=== PATIENT | male | born 1960 | race Caucasian/White ===

== ENCOUNTER 2017-05-10 07:42 | Emergency (ER) | payer BC, OTHER ==
[2017-05-10 07:48] VITALS: BP 177/99
[2017-05-10] MEDS ORDERED: Ketorolac INJ* 60 MG/2 ML VIAL IM ONE (08:08)
--- NOTE | 2017-05-10 09:02 | RAD ---
HISTORY: Hand pain COMPARISONS: None VIEWS: 4, Frontal, lateral, and oblique views of the right hand FINDINGS: BONE DENSITY: Normal. BONES: There is no displaced fracture. There is remote posttraumatic deformity to the fifth metacarpal. JOINTS: There is mild osteoarthritic of the interphalangeal joints and first CMC joint. ALIGNMENT: There is no dislocation. SOFT TISSUES: Unremarkable. OTHER FINDINGS: None. IMPRESSION: NO ACUTE OSSEOUS INJURY. IF SYMPTOMS PERSIST, RECOMMEND REPEAT IMAGING.
--- NOTE | 2017-05-10 12:39 | ED ---
Adan Inman Angela, scribed for Rusty Ghotra MD on 05/10/17 at 0833 . Upper Extremity Pain - HPI Summary HPI Summary: This pt is a 57 y/o male presenting to [facility] c/o right hand pain since yesterday morning. 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 Pt rates her pain 7 out of 10 in severity. He states his pain is aggravated with movement and twisting of his right hand. Pt is currently on anti -hypertensive medications. NKDA. - History of Current Complaint Chief Complaint: EDExtremityUpper Stated Complaint: HAND INJURY Time Seen by Provider: 05/10/17 08:00 Hx Obtained From: Patient Mechanism Of Injury: Other - injury from conduit mechanic work Onset/Duration: Started Days Ago - 1 day Timing: Lasting Days - 1 day Pain Location: Hand - right hand Aggravating Factor(s): Movement, Twisting Alleviating Factor(s): Nothing Associated Signs & Symptoms: Negative: Weakness, Numbness/Tingling - Allergies/Home Medications Allergies/Adverse Reactions: Allergies Allergy/AdvReac Type Severity Reaction Status Date / Time No Known Allergies Allergy Verified 05/13/14 11:32 PMH/Surg Hx/FS Hx/Imm Hx Endocrine/Hematology History: Denies: Hx Diabetes Cardiovascular History: Reports: Hx Hypertension - ON MEDS Denies: Other Cardiovascular Problems/Disorders Respiratory History: Reports: Hx Sleep Apnea - NOT DIAGNOSED GI History: Reports: Hx Gastroesophageal Reflux Disease - ON DAILY MEDS Denies: Other GI Disorders Musculoskeletal History: Reports: Hx Bursitis - RIGHT ELBOW Sensory History: Reports: Hx Contacts or Glasses - READING GLASSES Denies: Hx Hearing Aid Opthamlomology History: Reports: Hx Contacts or Glasses - READING GLASSES Neurological History: Denies: Other Neuro Impairments/Disorders - Surgical History Surgery Procedure, Year, and Place: 2008 RIGHT CARPAL TUNNEL [facility] Hx Anesthesia Reactions: No Infectious Disease History: No Infectious Disease History: Denies: Traveled Outside the [place] in Last 30 Days - Family History Known Family History: Positive: Hypertension, Other - Mother: hyperglycemia and asthma - Social History Alcohol Use: Occasionally Alcohol Amount: 2 PER WEEK Substance Use Type: Reports: None Smoking Status (MU): Never Smoked Tobacco Have You Smoked in the Last Year: No Review of Systems Negative: Fever, Chills Eyes: Negative Negative: Chest Pain Negative: Shortness Of Breath Negative: Abdominal Pain Positive: Other - right hand pain Negative: Weakness, Paresthesia, Numbness All Other Systems Reviewed And Are Negative: Yes Physical Exam - Summary Physical Exam Summary: VITAL SIGNS: Reviewed. GENERAL: ~Patient is a well-developed and nourished male who is lying comfortable in the stretcher. ~Patient is not in any acute respiratory distress. HEAD AND FACE: No signs of trauma. ~No ecchymosis, hematomas or skull depressions. No sinus tenderness. EYES: PERRLA, EOMI x 2, No injected conjunctiva, no nystagmus. EARS: Hearing grossly intact. Ear canals and tympanic membranes are within normal limits. MOUTH: Oropharynx within normal limits. NECK: Supple, trachea is midline, no adenopathy, no JVD, no carotid bruit, no c- spine tenderness, neck with full ROM. CHEST: Symmetric, no tenderness at palpation LUNGS: Clear to auscultation bilaterally. No wheezing or crackles. CVS: Regular rate and rhythm, S1 and S2 present, no murmurs or gallops appreciated. ABDOMEN: Soft, non-tender. No signs of distention. No rebound no guarding, and no masses palpated. Bowel sounds are normal. EXTREMITIES: No cyanosis or clubbing. There is slight swelling in the lateral aspect of the dorsum of the right hand. There is decreased ROM secondary to pain. There is good capillary refill and good pulses. NEURO: Alert and oriented x 3. No acute neurological deficits. Speech is normal and follows commands. SKIN: Dry and warm Triage Information Reviewed: Yes Vital Signs On Initial Exam: Initial Vitals Temp Pulse Resp BP Pulse Ox 98.5 F 57 20 177/99 98 05/10/17 07:44 05/10/17 07:44 05/10/17 07:44 05/10/17 07:44 05/10/17 07:44 Vital Signs Reviewed: Yes Diagnostics - Vital Signs Vital Signs Temp Pulse Resp BP Pulse Ox 05/10/17 07:44 98.5 F 57 20 177/99 98 - Laboratory Lab Statement: Any lab studies that have been ordered have been reviewed, and results considered in the medical decision making process. - Radiology Right Hand XR Xray Interpretation: No Acute Changes - IMPRESSION: No acute osseous injury. If symptoms persist, recommend repeat imaging. ED physician has reviewed this radiology report and agrees. Radiology Interpretation Completed By: Radiologist Re-Evaluation - Re-Evaluation First Eval Re-Evaluation Time: 08:50 Comment: I reviewed the XR results with the pt. Course/Dx - Course Assessment/Plan: This pt is a 57 y/o male presenting to [facility] c/o right hand pain since yesterday morning. 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 Pt rates her pain 7 out of 10 in severity. He states his pain is aggravated with movement and twisting of his right hand. Pt is currently on anti-hypertensive medications. NKDA. XR of the right hand shows no fracture or dislocation. He was given Toradol for the pain and his symptoms improved. The pt was placed in wrist splint and discharged home. Pt is advised to follow up with his PCP. Pt is hemodynamically stable, alert and oriented x3. - Diagnoses Differential Diagnosis/HQI/PQRI: Positive: Bursitis, Contusion, Fracture (Closed ), Strain, Sprain Provider Diagnoses: Hand sprain Discharge - Discharge Plan Condition: Stable Disposition: HOME Patient Education Materials: Hand Sprain (ED) Forms: *Work Release Referrals: Eric Willingham MD [Primary Care Provider] - Additional Instructions: Please follow up with your primary care provider. The documentation as recorded by the Adan chau Angela accurately reflects the service I personally performed and the decisions made by me, Rusty Ghotra MD.
== END 2017-05-10 09:03 | disposition home or self-care (01) ==
LOC: ED 07:42
DX: S63.91XA Sprain of unspecified part of right wrist and hand, initial encounter (principal); X58.XXXA Exposure to other specified factors, initial encounter; Y93.89 Activity, other specified; Y92.59 Other trade areas as the place of occurrence of the external cause; Y99.0 Civilian activity done for income or pay; I10 Essential (primary) hypertension; K21.9 Gastro-esophageal reflux disease without esophagitis
CPT/HCPCS: 96372; 99282; J1885

== ENCOUNTER 2019-03-29 10:47 | Observation (INO) | payer BC ==
[2019-03-29] MEDS ORDERED: Ondansetron INJ* 2 MG/ML VIAL IV ONE (11:58)
[2019-03-29] MEDS ORDERED: NS 0.9% 1000 ML** 1,000 ML IV ONE ×2 (11:58→12:54)
[2019-03-29] MEDS ORDERED: Morphine 4 MG/ML VIAL (1 ml) 4 MG/ML VIAL IV ONE ×2 (11:58→13:45)
--- NOTE | 2019-03-29 12:00 | ED ---
Abdominal Pain/Male - HPI Summary HPI Summary: Patient is a 59-year-old male who presents emergency department with severe right-sided abdominal pain that started last night. Patient states pain starts in his right upper back and radiates into his right groin. Patient notes chills without fever. Denies chest pain, shortness breath, cough, vomiting or diarrhea. Denies urinary symptoms. Past medical history of obesity, hypertension, GERD. Symptoms are moderate in severity. No current modifying factors. 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 Pain Intensity: 10 - Allergies/Home Medications Allergies/Adverse Reactions: Allergies Allergy/AdvReac Type Severity Reaction Status Date / Time No Known Allergies Allergy Verified 03/29/19 10:50 PMH/Surg Hx/FS Hx/Imm Hx Previously Healthy: Yes Endocrine/Hematology History: Denies: Hx Diabetes Cardiovascular History: Reports: Hx Hypertension - ON MEDS Denies: Other Cardiovascular Problems/Disorders Respiratory History: Reports: Hx Sleep Apnea - NOT DIAGNOSED GI History: Reports: Hx Gastroesophageal Reflux Disease - ON DAILY MEDS Denies: Other GI Disorders Musculoskeletal History: Reports: Hx Bursitis - RIGHT ELBOW Sensory History: Reports: Hx Contacts or Glasses - READING GLASSES Denies: Hx Hearing Aid Opthamlomology History: Reports: Hx Contacts or Glasses - READING GLASSES Neurological History: Denies: Other Neuro Impairments/Disorders - Surgical History Surgery Procedure, Year, and Place: 2008 RIGHT CARPAL TUNNEL [facility] Hx Anesthesia Reactions: No Infectious Disease History: No Infectious Disease History: Denies: Traveled Outside the [place] in Last 30 Days - Family History Known Family History: Positive: Hypertension, Other - Mother: hyperglycemia and asthma - Social History Occupation: Employed Full-time Lives: With Family Alcohol Use: Occasionally Alcohol Amount: 2 PER WEEK Substance Use Type: Reports: None Smoking Status (MU): Never Smoked Tobacco Have You Smoked in the Last Year: No Review of Systems Negative: Chills Cardiovascular: Negative Respiratory: Negative Positive: Abdominal Pain, Nausea. Negative: Vomiting, Diarrhea Genitourinary: Negative Negative: dysuria Musculoskeletal: Negative Skin: Negative Neurological: Negative All Other Systems Reviewed And Are Negative: Yes Physical Exam Triage Information Reviewed: Yes Vital Signs On Initial Exam: Initial Vitals Temp Pulse Resp BP Pulse Ox 98.4 F 88 16 152/91 97 03/29/19 10:48 03/29/19 10:48 03/29/19 10:48 03/29/19 10:48 03/29/19 10:48 Vital Signs Reviewed: Yes Appearance: Positive: Pain Distress - Pt. lying on bed with rigors. Appears in pain. present. Skin: Positive: Warm, Dry Head/Face: Positive: Normal Head/Face Inspection Eyes: Positive: Normal, EOMI Neck: Positive: Supple Respiratory/Lung Sounds: Positive: Clear to Auscultation, Breath Sounds Present Cardiovascular: Positive: Normal, RRR Abdomen Description: Positive: Other: - Obese. Abd. is soft with significant pain to RLQ with guarding. Musculoskeletal: Positive: Normal, Strength/ROM Intact Neurological: Positive: Normal, CN Intact II-III Psychiatric: Positive: Affect/Mood Appropriate Diagnostics - Vital Signs Vital Signs Temp Pulse Resp BP Pulse Ox 03/29/19 10:48 98.4 F 88 16 152/91 97 - Laboratory Result Diagrams: 03/29/19 12:14 03/29/19 12:14 Lab Statement: Any lab studies that have been ordered have been reviewed, and results considered in the medical decision making process. Abdominal Pain Male Course/Dx - Course Course Of Treatment: patient was significant abdominal pain. Is afebrile with stable vital signs. Patient was started on IV fluids and given pain medication. CBC shows a normal white blood cell count. Lactic acid elevated at 4.8. CT per radiology: IMPRESSION: #. Acute appendicitis. Negative for loculated periappendiceal abscess. Pt. given a second liter of fluids and zosyn. Dr. Banuelos in ED examing pt. and will take him to the OR for appendectomy. - Diagnoses Differential Diagnosis/HQI/PQRI: Appendicitis, Bowel Obstruction, Constipation, Diverticulitis, Gall Bladder Disease, Ureteral Stone, Urinary Tract Infection Provider Diagnoses: Appendicitis Discharge - Sign-Out/Discharge Documenting (check all that apply): Patient Departure Patient Received Moderate/Deep Sedation with Procedure: No - Discharge Plan Condition: Stable Disposition: ADMITTED TO [facility] Referrals: Eric Willingham MD [Primary Care Provider] - - Billing Disposition and Condition Condition: STABLE Disposition: Admitted to [facility]
[2019-03-29 12:29] LABS: ABS Eosinophils 0.1 10^3/ul (0-0.6); ABS Lymphocytes 2.2 10^3/ul (1.0-4.8); ABS Monocytes 0.1 10^3/ul (0-0.8); ABS Neutrophils 8.3 10^3/ul (1.5-7.7); Eosinophil % 1.4 %; Hematocrit 48 % (42-52); Hemoglobin 16.1 g/dL (14.0-18.0); Lymphocyte % 20.6 %; Mean Corpuscular HGB Conc 34 g/dL (31-36); Mean Corpuscular Hemoglobin 30 pg (27-31); Mean Corpuscular Volume 89 fL (80-94); Mean Platelet Volume 7.9 fL (7.4-10.4); Nucleated Red Blood Cells % 0.1; Platelet Count 296 10^3/uL (150-450); Red Blood Count 5.39 10^6 /uL (4.18-5.48); Red Cell Distribution Width 14 % (10-15); White Blood Count 10.8 10^3/uL (3.5-10.8)
[2019-03-29 12:39] LABS: Urine Appearance Clear; Urine Bacteria Absent (Absent); Urine Bilirubin Negative (Negative); Urine Blood 1+ (Negative); Urine Color Yellow; Urine Glucose Negative (Negative); Urine Ketones Negative (Negative); Urine Nitrite Negative (Negative); Urine Protein Negative (Negative); Urine Red Blood Cell 1+(3-5/hpf) (Absent); Urine Specific Gravity 1.018 (1.010-1.030); Urine Urobilinogen Negative (Negative); Urine White Blood Cell Trace(0-5/hpf) (Absent)
[2019-03-29 12:48] LABS: ALT 32 U/L (7-52); AST 19 U/L (13-39); Albumin 4.9 g/dL (3.2-5.2); Albumin/Globulin Ratio 1.6 (1-3); Alkaline Phosphatase 78 U/L (34-104); Anion Gap 11 mmol/L (2-11); BUN/Creatinine Ratio 21.5 (8-20); Blood Urea Nitrogen 23 mg/dL (6-24); C Reactive Protein 20.76 mg/L (<8.01); CO2 Carbon Dioxide 23 mmol/L (22-32); Calcium 9.9 mg/dL (8.6-10.3); Chloride 104 mmol/L (101-111); EGFR African American 85.9 (>60); Globulin 3.1 g/dL (2-4); Glucose 124 mg/dL (70-100); Potassium 3.7 mmol/L (3.5-5.0); Sodium 138 mmol/L (135-145)
[2019-03-29] MEDS ORDERED: Iohexol 300* (CONTRAST) 10 ML SDV IV ONE (13:00)
[2019-03-29] MEDS ORDERED: Piperacillin/Tazobac ADVAN(*) 3.375 GM in NS 0.9% 100 ML* 100 ML IVPB ONE (13:52)
[2019-03-29] MEDS ORDERED: Dexamethasone IV* 4 MG/ML 1 ML (4 MG) ONE (14:29)
[2019-03-29] MEDS ORDERED: Ondansetron INJ* 2 MG/ML VIAL ONE (14:29)
[2019-03-29] MEDS ORDERED: Lidocaine 2% PF * 5 ML VIAL ONE (14:29)
[2019-03-29] MEDS ORDERED: Propofol* 10 MG/ML 20 ML BTL ONE (14:29)
[2019-03-29] MEDS ORDERED: fentaNYL* 50 MCG/ML 5 ML VIAL (250 MCG VIAL) ONE (14:29)
[2019-03-29] MEDS ORDERED: Cisatracurium* 2 MG/ML MDV 5 ML ONE (14:30)
[2019-03-29] MEDS ORDERED: Midazolam* 1 MG/ML 5 ML VIAL (5 MG) ONE (14:30)
--- NOTE | 2019-03-29 14:47 | HP ---
H&P (Free Text) History and Physical: CC: RLQ abdominal pain, N/V HPI: 59 yo M with HTN, GERD presented to ED with 12 hr h/o RLQ abd pain, worsening over the night. He had normal work day yesterday and reported eating normally. Pain started at 10 PM and initially thought it could be his hip. Pain is provoked by movement. He slept poorly and had rigors. His is an RN and brought him to the ED at 10:30 AM. Pain partially relieved by IV narcotics. He also experienced N/V on arrival. His evaluation included labs and CT imaging. He was noted to have normal WBCs, elevated lactate. CT shows a retrocecal appendix, 1cm with fecalith. Surgical evaluation was requested. PMH: HTN, GERD, obesity PSH: elbow surgery for bone "chip" Meds: lisinopril 20mg daily, omeprazole 40mg daily, HCTZ 12.5mg daily. 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 FH: Father (alive 96)-- [place], HTN, prostate ca, PPM; Mother ( 80's)--[place], COPD; brother-- [place]; brother ()--kidney disease ROS: CVS: as above, no CP/SOB; Resp: no cough/wheeze; GI: as above; G/U: nocturia x1, no dyuria/hematuria; Endo: denies DM/thyroid dz; M/S: as above; Heme: denies bleeding tendencies, no blood clot hx PE: Vital Signs Temp 98.9 F 03/29/19 14:36 Pulse 113 03/29/19 14:36 Resp 24 03/29/19 14:36 BP 117/86 03/29/19 14:36 Pulse Ox 95 03/29/19 14:36 GEN: Obese M lying in stretcher; A&Ox3 HEENT: NCAT; EOMI; no adam/rhinorrhea Neck: supple; no BONNIE/masses Lungs: CTA B; no wheeze/rales Heart: reg s1s2; tachycardic Abd: obese, no scars, +BS, soft, tender RLQ to light palpation; no Rovsing sx. Ext: warm; no cyanosis/edema; no CT. Intake & Output 03/28/19 03/29/19 03/29/19 18:59 06:59 18:59 Intake Total 1000 Balance 1000 Weight 229 lb Intake: IV Fluids 1000 Laboratory Results - last 24 hr 03/29/19 03/29/19 03/29/19 12:07 12:14 12:14 WBC 10.8 RBC 5.39 Hgb 16.1 Hct 48 MCV 89 MCH 30 MCHC 34 RDW 14 Plt Count 296 MPV 7.9 Neut % (Auto) 77.0 Lymph % (Auto) 20.6 [place] % (Auto) 0.6 Eos % (Auto) 1.4 Baso % (Auto) 0.4 Absolute Neuts (auto) 8.3 H Absolute Lymphs (auto) 2.2 Absolute Monos (auto) 0.1 Absolute Eos (auto) 0.1 Absolute Basos (auto) 0.0 Absolute Nucleated RBC 0.0 Nucleated RBC % 0.1 Sodium 138 Potassium 3.7 Chloride 104 Carbon Dioxide 23 Anion Gap 11 BUN 23 Creatinine 1.07 Est GFR ( Amer) 85.9 Est GFR (Non-Af Amer) 71.0 BUN/Creatinine Ratio 21.5 H Glucose 124 H Lactic Acid Calcium 9.9 Total Bilirubin 1.30 H AST 19 ALT 32 Alkaline Phosphatase 78 Troponin I 0.00 C-Reactive Protein 20.76 H Total Protein 8.0 Albumin 4.9 Globulin 3.1 Albumin/Globulin Ratio 1.6 Lipase < 10 L Urine Color Yellow Urine Appearance Clear Urine pH 7.0 Ur Specific [place] 1.018 Urine Protein Negative Urine Ketones Negative Urine Blood 1+ A Urine Nitrate Negative Urine Bilirubin Negative Urine Urobilinogen Negative Ur Leukocyte Esterase Negative Urine WBC (Auto) Trace(0-5/hpf) Urine RBC (Auto) 1+(3-5/hpf) A Urine Bacteria Absent Urine Glucose Negative 03/29/19 12:14 WBC RBC Hgb Hct MCV MCH MCHC RDW Plt Count MPV Neut % (Auto) Lymph % (Auto) [place] % (Auto) Eos % (Auto) Baso % (Auto) Absolute Neuts (auto) Absolute Lymphs (auto) Absolute Monos (auto) Absolute Eos (auto) Absolute Basos (auto) Absolute Nucleated RBC Nucleated RBC % Sodium Potassium Chloride Carbon Dioxide Anion Gap BUN Creatinine Est GFR ( Amer) Est GFR (Non-Af Amer) BUN/Creatinine Ratio Glucose Lactic Acid 4.8 H* Calcium Total Bilirubin AST ALT Alkaline Phosphatase Troponin I C-Reactive Protein Total Protein Albumin Globulin Albumin/Globulin Ratio Lipase Urine Color Urine Appearance Urine pH Ur Specific [place] Urine Protein Urine Ketones Urine Blood Urine Nitrate Urine Bilirubin Urine Urobilinogen Ur Leukocyte Esterase Urine WBC (Auto) Urine RBC (Auto) Urine Bacteria Urine Glucose CT images reviewed. Impression: Acute appendicitis with concern for early sepsis. HTN, GERD. Plan: Laparoscopic appendectomy. I discussed the findings with the patient, his and brother. I recommended surgical treatment. The nature of the procedure, indications, risks, benefit and alternatives, including the option of no treatment, were discussed. Risks explained including, not limited to: bleeding, infection, pain, scars, blood clots, pneumonia, open surgery, visceral injury (bowel/bladder), N/V, and risk of GETA. All questions were answered. He stated understanding and agrees to proceed.
[2019-03-29] MEDS ORDERED: Bupivacaine 0.25% W/EPI* 10 ML SDV ONE (14:55)
[2019-03-29] MEDS ORDERED: Phenylephrine 40 MCG/ML SYRINGE ONE (15:04)
[2019-03-29] MEDS ORDERED: Neostigmine Methylsulfate* 1 MG/ML 10 ML VIAL (1 mg/ml) ONE (15:38)
[2019-03-29] MEDS ORDERED: Glycopyrrolate IV* 0.2 MG/ML 1 ML VIAL ONE (15:38)
[2019-03-29] MEDS ORDERED: Ibuprofen TAB* 600 MG PO PRN (15:53)
[2019-03-29] MEDS ORDERED: HYDROmorphone INJ1* 1 MG/ML SYRINGE IV SLOW PU PRN (15:53)
[2019-03-29] MEDS ORDERED: Ondansetron INJ* 2 MG/ML VIAL IV PRN ×2 (15:53→16:06)
--- NOTE | 2019-03-29 16:01 | BRIEFOPN ---
Brief Operative Note - Operation Details Pre-Op Diagnosis: ACUTE APPENDICITIS Post-Op Diagnosis: SAME Procedures: LAPAROSCOPIC APPENDECTOMY Surgeon(s)/Proceduralists: WILLIAMS Anesthesia: GET; TOAL Estimated Blood Loss: <20ML Findings: ACUTE SUPPURATIVE APPENDICITIS Specimen(s)/Culture(s) Description: APPENDIX Complications: NONE
[2019-03-29] MEDS ORDERED: Naloxone* 0.4 MG/ML 1 ML VIAL IV PRN (16:06)
[2019-03-29] MEDS ORDERED: fentaNYL* 50 MCG/ML 2 ML VIAL (100 MCG VIAL) IV PRN (16:06)
[2019-03-29] MEDS: NS 0.9% 1000 ML** 1,000 ML IV SCH (17:15)
[2019-03-29] MEDS: Piperacillin/Tazobactam VIAL*) 3.375 GM in NS 0.9% 100 ML* 100 ML IVPB SCH (18:33)
--- NOTE | 2019-03-29 20:01 | OP ---
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 ANESTHESIOLOGIST: Kd Don M.D. ANESTHESIA: General endotracheal. PRE-OP DIAGNOSIS: Acute appendicitis. POST-OP DIAGNOSIS: Acute appendicitis. OPERATIVE PROCEDURE: Laparoscopic appendectomy. ESTIMATED BLOOD LOSS: Less than 20 mL. IV FLUIDS: 1.45 L of crystalloids. SPECIMENS: Appendix. DRAINS: None. COMPLICATIONS: None. COUNTS: Instruments, needle, sponge counts correct. DESCRIPTION OF PROCEDURE: The patient was brought to the operating room, placed on the table supine. Sequential compression devices were placed on both lower extremities. General anesthesia was administered. He was positioned and padded appropriately. He received appropriate antibiotics intravenously. He was sterilely prepped and draped, and time-out was performed. Local anesthetic was infiltrated into the skin and soft tissue prior to making each incision. A transumbilical vertical incision was created using an open technique. After accessing the peritoneal cavity, a 12-mm trocar was placed and carbon dioxide was insufflated to a pressure of 15 mmHg. Under direct visualization, 5-mm trocars were placed in the suprapubic midline and in the left lower quadrant. In the right lower quadrant, a suppurative appendix was identified in the retrocecal position. The appendix was elevated at the base. The appendix appeared normal. A window was created at the mesentery at its base and the appendix was divided from the cecum staying toward the cecal side with the endo FELIPE stapler with a low cartridge, then the appendix mesentery was divided with Endo FELIPE stapler with a medley cartridge. The appendix was placed into a retrieval bag and retrieved through the umbilical site. Hemostasis was assured. Staple lines were intact. The ports were removed under direct visualization and carbon dioxide was released. The umbilicus was closed with 0 Vicryl in [id number] fashion to approximate fascia. The skin incisions were closed with 4-0 Monocryl in subcuticular fashion and then DermaFlex was applied to the wounds. The patient tolerated this procedure well, was extubated and transferred to recovery room in stable condition. [id number]/[facility] #: [id number] [facility]
[2019-03-29] MEDS: oxyCODONE/Acetamin 5/325 MG* TAB PO PRN (21:49)
[2019-03-30] MEDS: NS 0.9% 1000 ML** 1,000 ML IV SCH ×2 (00:04→06:08)
[2019-03-30] MEDS: Piperacillin/Tazobactam VIAL*) 3.375 GM in NS 0.9% 100 ML* 100 ML IVPB SCH ×2 (01:57→10:47)
[2019-03-30] MEDS: oxyCODONE/Acetamin 5/325 MG* TAB PO PRN ×2 (02:00→06:01)
[2019-03-30 07:21] VITALS: BP 98/66
[2019-03-30] MEDS ORDERED: Lisinopril TAB* 10 MG PO SCH (09:00)
[2019-03-30] MEDS ORDERED: Pantoprazole TAB * 40 MG TAB PO SCH (09:00)
--- NOTE | 2019-03-30 09:07 | DS ---
CC: Dr. Eric Willingham * DISCHARGE SUMMARY: DATE OF ADMISSION: 03/29/19 DATE OF DISCHARGE: 03/30/19 DISCHARGE DIAGNOSES: 1. Acute appendicitis. 2. Hypertension. 3. Gastroesophageal reflux disease. 4. Obesity. 5. Abnormal chest x-ray. PROCEDURE: Laparoscopic appendectomy was on 03/29/19. HOSPITAL COURSE: This is a 59-year-old male who presented to [facility] Emergency Room with right-sided abdominal pain. He had evaluation by emergency room staff. The patient's CT scan showed findings consistent with acute appendicitis and surgical evaluation was requested. The patient also had a portable chest x-ray demonstrating an asymmetric opacity at the right lung apex, which may represent scarring or inflammatory infiltrate or potentially an apical mass and no prior exams were available for comparison. The etiology suggested that he be considered for further assessment with contrast-enhanced chest CT scan. He also had some mild pulmonary vascular congestion. The patient was taken emergently to the operating room and underwent an uneventful laparoscopic appendectomy. He was kept in the hospital postoperatively for additional IV antibiotics. On postoperative day 1 at 1219, he was tolerating diet, ambulating, and reporting no issues with significant nausea or pain. He was only taking Percocet for pain. The patient was felt to be stable for discharge home and is discharged to home in a stable condition with plans to follow up in [facility] office. It was also discussed with the patient and his that he should follow up with Dr. Willingham regarding the chest x-ray findings. His pathology was pending at the time of discharge and will be reviewed at his followup. DISCHARGE MEDICATIONS: Include: 1. Lisinopril 10 mg daily. 2. Omeprazole 40 mg daily. 3. Fish oil 1200 mg daily. 4. Baby aspirin 81 mg daily. 5. Percocet 5/325 one tablet p.o. q.4 hours p.r.n. for pain. [id number]/[facility] #: [id number] A- /[id number]/[facility] #: [id number] [facility]Van
--- NOTE | 2019-03-30 09:41 | DS ---
DISCHARGE SUMMARY: DATE OF ADMISSION: 03/29/19 DATE OF DISCHARGE: 03/30/19 ADDENDUM: Please cc the copy of previously dictated discharge summary to Dr. Eric Willingham. [id number]/[facility] #: [id number] MTDD
== END 2019-03-30 10:50 | disposition home or self-care (01) ==
LOC: ED 10:47 → OR 14:54 → SSU 15:53
PROVIDERS: ADMIT Surgery; ATTEND Surgery
DX: K35.80 Unspecified acute appendicitis (principal); I10 Essential (primary) hypertension; K21.9 Gastro-esophageal reflux disease without esophagitis; E66.9 Obesity, unspecified; R91.8 Other nonspecific abnormal finding of lung field; Z79.899 Other long term (current) drug therapy; Z79.82 Long term (current) use of aspirin
CPT/HCPCS: 36415; 71045; 74177; 80053; 81003; 81015; 83605; 83690; 84484; 85025; 86140; 87040; 87076; 87077; 87086; 87150; 87186; 87205; 88304; 96361; 96365; 96366; 96375; 99284; A9270-GY; C1776; G0378; J1100; J2250; J2270; J2405; J2543; J2704; J2710; J3010; Q9967